=== PATIENT | female | born 1990 | race Caucasian/White ===

== ENCOUNTER → 2016-08-17 | Outpatient (CLI) | payer BC | END | disposition home or self-care (01) | LOC: C.PAPS 13:39 | PROVIDERS: ATTEND Physician Assistant | DX: Z01.419 Encounter for gynecological examination (general) (routine) without abnormal findings (principal) ==

== ENCOUNTER 2022-01-22 21:45 | Inpatient (IN) ==
[2022-01-22] MEDS ORDERED: OXYTOCIN 30 UNITS/500 ML BAG IV PRN (22:23)
[2022-01-22] MEDS ORDERED: LIDOCAINE 1% LOCAL 20 ML VIAL INFIL PRN (22:23)
[2022-01-22] MEDS: LACTATED RINGER'S 1,000 ML IV PRN (22:31)
[2022-01-22] MEDS ORDERED: ePHEDrine sulfate 50 MG/ML AMP ONE (22:37)
[2022-01-22] MEDS ORDERED: SODIUM CHLORIDE 0.9% INJ 10 ML VIAL ONE (22:37)
[2022-01-22] MEDS ORDERED: LIDOCAINE 2%/EPINEPHRINE 1:200,000 20 ML SDV ONE (22:37)
[2022-01-22] MEDS ORDERED: fentaNYL citrate 100 MCG/2 ML VIAL ONE (22:37)
[2022-01-22] MEDS ORDERED: BUPIVACAINE 0.25% 30 ML VIAL ONE (22:37)
[2022-01-22] MEDS ORDERED: fentaNYL 2MCG/ML ROPIVACAINE 1.25MG/ML 100 ML BAG EPI ONE (22:38)
[2022-01-22 22:52] LABS: Hematocrit (blood only) 35.4 % (34.1-44.9); Hemoglobin 12.6 g/dl (12.0-16.0); Mean Corpuscular Hemoglobin 30.6 pg (25.0-34.0); Mean Corpuscular Hgb Conc 35.6 g/dL (32.0-36.0); Mean Corpuscular Volume 85.9 fL (80.0-100.0); Mean Platelet Volume 9.8 fL (9.4-12.3); Platelet Count 239 K/uL (130-400); RDW Coefficient of Variation 13.1 % (11.5-14.5); RDW Standard Deviation 40.4 fL (36.4-46.3); Red Blood Count 4.12 M/uL (3.93-5.22); White Blood Count 11.08 K/ul (4.8-10.8)
--- NOTE | 2022-01-22 23:20 | History & Physical Report ---
Date of Service January 22, 2022 Assessment & Plan (1) Supervision of normal intrauterine in primigravida: Plan: primip IUP at 40+ weeks with SPROM and active labor patient had consult with anesthesiology and was felt to be able to attempt epidural analgesia she is aware that it may be as effective because of her prior back surgery anticipate vaginal Admission and Anticipated Discharge Date Admission Date: January 22, 2022 History of Present Illness Primary Care Provider: Zeb Mcmahan MD Patient is a 32 yo female EDC 01/18/22 who presents at 40 4/7 weeks with SPROM for clear fluid and spontaneous onset of contractions shortly afterward. good movement. complicated by post term and prior scoliosis surgery at [facility] in 2005 with hardware in the thoracic and cervical spine regions but not the lumbar area. GBS negative Allergies Allergy/AdvReac Type Severity Reaction Status Date / Time Sulfa (Sulfonamide Allergy Mild Rash Verified 01/22/22 22:02 Antibiotics) aspirin Allergy Hives Verified 01/22/22 22:02 codeine Allergy Nausea Verified 01/22/22 22:02 Penicillins Allergy Rash Verified 01/22/22 22:02 Home Medications Medication Instructions Recorded Confirmed Type prenat.vits,luis enrique,[id number] 1 tab PO DAILY 09/24/21 01/22/22 History Patient History Medical History (Updated 01/22/22 @ 22:02 by Stacie Bautista RN) Scoliosis spinal fusion 2005 at [facility] Surgical History H/O Spinal surgery S/P tonsillectomy and adenoidectomy S/P wisdom tooth extraction Family History Grandmother (Paternal) Ovarian cancer Breast cancer Grandmother (Maternal) Hypertension Skin cancer Social History (Updated 09/24/21 @ 16:35 by Kayleigh Tiwari) Smoking Status: Never smoker Hx Alcohol Use: No Hx Substance Use: No Preferred Language: Khmer Communication Ability: Effective Aircraft Navigator Required: No Beliefs That Will Affect Care: None marital status: Single marital status details: Conrad (28) [phone] Current Living Situation: Significant Other Current Living Situation Comment: lives with fob, 2 cats, fob to change the litter. current occupational status: employed current occupation: assist director of preschool Other Information That Helps Us Care for You: No Feels Safe at Home: Yes Safety Concerns: Feels Safe At This Time Assistive Devices: Glasses Review of Systems All systems reviewed & are unremarkable except as noted in HPI & below Physical Exam Constitutional: WD/WN, vitals as above Psychiatric: A+Ox3, euthymic affect Genitourinary: OB Exam Abdomen: + vertex, + estimated weight (7-8 pounds) and + regular contractions (2-5 minutes moderate) Manual OB Exam: + cervical dilation 6 cm, + cervical effacement 90%, + station -1 and + amniotic fluid (grossly ruptured- clear fluid) clear OB Exam Monitor Tracing: + external FHT monitor used, + external uterine monitor used, + category I and + normal FHT variability Results & Data ([facility]) Vital Signs (Past 12 Hours) Vital Signs Temp Pulse Resp BP Pulse Ox 01/22/22 22:03 18 01/22/22 23:08 97 01/22/22 23:08 67 01/22/22 21:57 98.4 F 90 18 118/67 Code Status & VTE Plan VTE Prophylaxis Plan VTE Prophylaxis will be ordered: No Coding Level of Care Code None Diagnoses Supervision of normal intrauterine in primigravida Z34.00
[2022-01-22] MEDS ORDERED: ONDANSETRON INJ 2 MG/ML 2 ML VIAL IV PRN (23:23)
[2022-01-22] MEDS ORDERED: diphenhydrAMINE 50 MG/ML VIAL IV PRN (23:23)
[2022-01-22] MEDS ORDERED: ePHEDrine sulfate 50 MG/ML AMP IV PRN (23:23)
[2022-01-22] MEDS ORDERED: NALOXONE HCL 0.4 MG/1 ML VIAL/CARP IV PRN (23:23)
[2022-01-22] MEDS ORDERED: NALOXONE HCL 1 MG in SODIUM CHLORIDE 0.9% 1000ML 1,000 ML IV PRN (23:23)
[2022-01-22] MEDS ORDERED: fentaNYL 2MCG/ML ROPIVACAINE 1.25MG/ML 100 ML BAG EPI PRN (23:23)
--- NOTE | 2022-01-22 23:27 | Anesthesiology Consultation ---
Date of Service January 22, 2022 Assessment & Plan (1) Encounter for pre-operative examination: Chart Review Chart Review: Patient NOT seen in Pre Admission Testing and Acceptable Risk for Labor Epidural please see previous anesthesia exam and advise for full details regarding prior back surgery. Consults Requested none History Height/Weight Height: 5 ft 4 in Weight: 81.647 kg Allergies Allergy/AdvReac Type Severity Reaction Status Date / Time Sulfa (Sulfonamide Allergy Mild Rash Verified 01/22/22 22:02 Antibiotics) aspirin Allergy Hives Verified 01/22/22 22:02 codeine Allergy Nausea Verified 01/22/22 22:02 Penicillins Allergy Rash Verified 01/22/22 22:02 Medications Home Medications Medication Instructions Recorded Confirmed Last Taken prenat.vits,luis enrique,[id number] 1 tab PO DAILY 09/24/21 01/22/22 01/21/22 Active Medications Generic Name Dose Route Start Last Admin Trade Name Freq PRN Reason Stop Dose Admin Lactated Ringer's 1,000 mls @ 125 mls/hr 01/22/22 22:23 01/22/22 23:15 Lr IV 01/24/22 22:22 125 mls/hr .Q8H PRN Infusion L&D Protocol Protocol Past Medical History Medical History Scoliosis spinal fusion 2006 at [facility] Exercise / Class Metabolic Activity II 4-5 Yardwork/Stairs/Walk up hill Past Family History Family History Grandmother (Paternal) Ovarian cancer Breast cancer Grandmother (Maternal) Hypertension Skin cancer Past Surgical History Surgical History H/O Spinal surgery S/P tonsillectomy and adenoidectomy S/P wisdom tooth extraction Past Anesthesia History No Hx of Anesthesia Complications and No Family Hx of Anesthesia Complications History of PONV No Hx of PONV and No Hx of Motion Sickness Social History Smoking Status: Never smoker Hx Alcohol Use: No Hx Substance Use: No substance use type: does not use Physical Exam Vital Signs Last Vital Signs Temp 36.8 C 01/22/22 23:48 Pulse 80 01/22/22 23:51 Resp 20 01/22/22 23:48 BP 125/78 01/22/22 23:51 Pulse Ox 98 01/22/22 23:48 Testing Laboratory Results 01/22/22 22:28
[2022-01-23] MEDS ORDERED: OXYTOCIN 30 UNITS/500 ML BAG IV PRN ×2 (00:28→09:12)
[2022-01-23] MEDS: LACTATED RINGER'S 1,000 ML IV PRN ×2 (01:09→04:52)
[2022-01-23] MEDS ORDERED: NURSING L&D Epidural Breakthrough Pain Update ONE (01:46)
[2022-01-23] MEDS ORDERED: LIDOCAINE 2%/EPINEPHRINE 1:200,000 20 ML SDV ONE (02:03)
[2022-01-23] MEDS ORDERED: BUPIVACAINE 0.25% 30 ML VIAL ONE (02:35)
--- NOTE | 2022-01-23 03:05 | Anesthesiology Progress Note ---
Date of Service January 23, 2022 Assessment & Plan (1) Encounter for pre-operative examination: Plan: Neuraxial Placement Date and time of procedure: Indication: labor epidural Consent: Informed consent obtained from the patient or designated proxy. The inherent risks, expected benefits, treatment alternatives, as well as the technical aspects of the procedure were discussed with the patient and a full explanation was given. Patient was given the opportunity to ask questions, which were answered to their satisfaction. Time Out: A time-out was performed verifying correct patient with two identifiers, procedure, site, positioning, and special equipment (if needed). Monitors Attached: EKG BP Pulse Oximetry Prehydrated: [250]ml lactated ringers Position: Sitting Prep: Duraprep Sterile Drape Sterile procedures used Site: Midline Level L3-4 Local Skin Infiltration: [2] ml 1% lidocaine Neuraxial Technique: CSE Needle: 17g x 3.5 inch Tuohy 26g x 5 inch CSE Spinal Needle Test dose: 3ml of 1.5% Lidocaine with epinephrine 1:200,000 Anesthetic: [1]ml 0.25% Bupivicaine via sab Additives: Attempts: 1 Parasthesias: No CSF: Yes Blood: Y No Post Procedure: Patient tolerated the procedure well without apparent complications. Admission and Anticipated Discharge Date Admission Date: January 22, 2022 Subjective pt with increasing pain, bolused a total of 8ml of 2% lido with epi in divided doses. no pain improvement. continued with slightly increased pressure (felt via syringe) when bolused through catheter. pt wanted pain relief and wanted me to replace epidural again knowing risk of epidural placement with prior back surgery. removed epidural and did CSE as noted below. Physical Exam Vital Signs: Last Vital Signs Temp 36.8 C 01/22/22 23:48 Pulse 85 01/23/22 02:57 Resp 20 01/23/22 01:46 BP 107/65 01/23/22 02:57 Pulse Ox 98 01/23/22 02:53 Results & Data ([facility]) Medications Administered Lactated Ringer's (Lr) 1,000 mls @ 125 mls/hr IV .Q8H PRN; Protocol PRN Reason: L&D Protocol Stop: 01/24/22 22:22 Last Infusion: 01/23/22 02:30 Dose: 125 mls/hr Documented By: Infusion: 01/23/22 02:17 Dose: 999 mls/hr Documented By: Admin: 01/23/22 01:09 Dose: 125 mls/hr Documented By: Infusion: 01/23/22 01:09 Dose: 125 mls/hr Documented By: Infusion: 01/22/22 23:15 Dose: 125 mls/hr Documented By: Admin: 01/22/22 22:31 Dose: 999 mls/hr Documented By: ALEX Oxytocin (Pitocin) 30 units in 500 mls @ 3 mls/hr IV .Q24H PRN; Protocol PRN Reason: Labor Induction/Augmentation Stop: 01/25/22 00:27 Last Titration: 01/23/22 01:40 Dose: 0.18 units/hr, 3 mls/hr Documented By: Admin: 01/23/22 00:59 Dose: 0.06 units/hr, 1 mls/hr Documented By: ALEX Co-signed By: KEITH
[2022-01-23] MEDS ORDERED: Nursing to Pharmacy Communication SCH (06:00)
[2022-01-23] MEDS ORDERED: CALCIUM CARBONATE 500 MG CHEWABLE TAB PO PRN (07:07)
[2022-01-23] MEDS ORDERED: ACETAMINOPHEN 325 MG TAB PO PRN (09:12)
[2022-01-23] MEDS ORDERED: BENZOCAINE 20% AER SPR 82.5 GM CAN EXT PRN (09:12)
[2022-01-23] MEDS ORDERED: oxyCODONE/ACETAMINOPHEN 5mg/325mg TAB PO PRN (09:12)
[2022-01-23] MEDS ORDERED: bisacodyL 10 MG SUPP PR PRN (09:12)
[2022-01-23] MEDS ORDERED: DIPHTHERIA/TETANUS/PERTUSSIS 0.5 ML SYR/VIAL IM ONE (09:12)
[2022-01-23] MEDS ORDERED: HYDROCORTISONE ACETATE 25 MG SUPP PR PRN (09:12)
--- NOTE | 2022-01-23 09:36 | Delivery Summary ---
Vaginal Delivery Summary Date of Service January 23, 2022 Vaginal Delivery Summary and 2nd Degree LAC Patient is a 32-year-old female EDC of 1031 who presents at 40-6/7 weeks with spontaneous rupture of membranes for clear fluid. Spontaneous regular contractions started shortly after membranes ruptured. She requested epidural analgesia which initially was not effective but a restart but excellent relief. She received Pitocin augmentation and progressed to complete. She pushed effectively over intact perineum for delivery of a viable female infant. Rest the infant delivered easily. The infant was placed on the mother's abdomen for further attention and drying. She was vigorous crying and moving all 4 limbs. The cord was clamped and cut after 1 minute. Cord blood was obtained prior to delivering the placenta which was expressed intact with a three-vessel cord. A second-degree perineal laceration was repaired with 3-0 chromic in the usual fashion. Estimated blood loss is 250 cc. bleeding was controlled with dilute Pitocin and fundal massage. Mother and were doing well after delivery. [facility] [place] Delivery Type Details: and 2nd Degree LAC
--- NOTE | 2022-01-23 13:30 | Anesthesia Procedure Note ---
Date of Service January 23, 2022 Anesthesia Post Epidural Note Vital Signs Vital Signs: Temp Pulse Resp BP Pulse Ox O2 Del Method 36.5 C 80 20 129/76 99 01/23/22 12:31 01/23/22 12:31 01/23/22 12:31 01/23/22 12:31 01/23/22 12:31 01/23/22 12:00 Pain Intensity Lower Abdomen: Pain Intensity: 0 Notes Mental Status: alert / awake / arousable and participated in evaluation Nausea / Vomiting: adequately controlled Pain: adequately controlled Airway Patency, RR, SpO2: stable & adequate BP & HR: stable & adequate Hydration State: stable & adequate Neuraxial Anesthesia: was administered and sensory block resolved Anesthetic Complications: no major complications apparent and Pt Satisfied with anesthetic care Epidural: Removed without complications and With tip intact
[2022-01-23] MEDS: IBUPROFEN 600 MG TAB PO PRN ×2 (15:45→22:49)
[2022-01-23] MEDS: DOCUSATE SODIUM 100 MG CAP PO SCH (20:15)
[2022-01-24] MEDS: IBUPROFEN 600 MG TAB PO PRN (05:49)
[2022-01-24 06:37] LABS: Hematocrit (blood only) 32.9 % (34.1-44.9); Hemoglobin 11.4 g/dl (12.0-16.0); Mean Corpuscular Hgb Conc 34.7 g/dL (32.0-36.0); Mean Corpuscular Volume 86.6 fL (80.0-100.0); Mean Platelet Volume 9.5 fL (9.4-12.3); Platelet Count 202 K/uL (130-400); RDW Coefficient of Variation 13.5 % (11.5-14.5); RDW Standard Deviation 42.5 fL (36.4-46.3)
[2022-01-24] MEDS: DOCUSATE SODIUM 100 MG CAP PO SCH (07:48)
[2022-01-24] MEDS ORDERED: PRENATAL VITAMIN 1 TAB PO SCH (08:00)
--- NOTE | 2022-01-24 10:12 | Obstetrical Progress Note ---
Date of Service January 24, 2022 Assessment & Plan (1) care following vaginal delivery: Plan stable, routine care. doing well, and wants to go home. instructions reviewed. f/u 6 wk pp reviewed. hgb noted. , had cassy lo. Day #:: 1 Subjective Ambulation: ambulating normally Voiding: no voiding problems Diet Tolerance:: regular diet Lochia:: Small Feeding Type:: breast feeding no pain issues. going really well. pt desires to go home. Constitutional: + as per Subjective / HPI Physical Exam Constitutional WD/WN, vitals as above Respiratory normal respiratory effort, lungs clear to auscultation Cardiovascular Rate/Rhythm: regular rate and regular rhythm Gastrointestinal (Abdomen) Inspection/Auscultation: abdomen normal to inspection Percussion/Palpation: abdomen soft Fundus firm 2cm down Musculoskeletal nt calves no edema Neurologic grossly normal Psychiatric A+Ox3, euthymic affect Results & Data ([facility]) Vital Signs (Past 12 Hours) Vital Signs Temp Pulse Resp BP Pulse Ox O2 Del Method 01/24/22 07:15 98.1 F 71 18 108/67 95 Room Air 01/24/22 03:18 97.5 F L 76 18 118/77 95 Room Air
[2022-01-24] MEDS ORDERED: bisacodyL 5 MG TABEC PO SCH (20:00)
== END 2022-01-24 11:30 | disposition home or self-care (01) | DRG 807 ==
LOC: OPB 21:45 → 4S1 21:46 → 4E2 01-23 12:25